=== PATIENT | female | born 1975 | race Two or more races ===

== ENCOUNTER 2017-10-30 05:30 | Day surgery (SDC) | payer OTHER ==
[2017-10-30] MEDS ORDERED: CODE1TAB37 PO (08:44)
[2017-10-30] MEDS ORDERED: DOXYCYCLINE HY100 MG PO (08:44)
== END 2017-10-30 12:55 | disposition home or self-care (01) ==
LOC: CIR.AMB 05:30
DX: N75.0 Cyst of Bartholin's gland (principal)

== ENCOUNTER 2022-11-07 05:10 | Day surgery (SDC) | payer OTHER ==
[~2022-11-07] VITALS: Ht 157.5 cm; Wt 57.6 kg
[~2022-11-07 05:10] MED LIST: CODE1TAB37 PO; DOXYCYCLINE HY100 MG PO
[2022-11-07] MEDS ORDERED: MORGIDOX100 MG PO (10:05)
[2022-11-07] MEDS ORDERED: NAPR500T14 PO (10:05)
== END 2022-11-07 14:50 | disposition home or self-care (01) ==
LOC: CIR.AMB 05:10
PROVIDERS: ATTEND Obstetrics & Gynecology
DX: Z53.09 Procedure and treatment not carried out because of other contraindication (principal); N84.0 Polyp of corpus uteri; D25.0 Submucous leiomyoma of uterus; N92.0 Excessive and frequent menstruation with regular cycle; Z20.822 Contact with and (suspected) exposure to COVID-19; N92.5 Other specified irregular menstruation; R10.2 Pelvic and perineal pain; I10 Essential (primary) hypertension

== ENCOUNTER 2022-12-27 08:55 | Inpatient (IN) | payer OTHER ==
[~2022-12-27] VITALS: Ht 160 cm; Wt 56.7 kg
[~2022-12-27 08:55] MED LIST changes: +MORGIDOX100 MG PO; +NAPR500T14 PO
[2023-01-02] MEDS ORDERED: NAPROXEN500 MG (08:07)
[2023-01-03] MEDS ORDERED: Tylenol #3 PO (09:36)
[2023-01-03] MEDS ORDERED: NAPR500T14 PO (09:37)
== END 2023-01-03 10:10 | disposition home or self-care (01) | DRG 743 ==
LOC: OB/GYN 01-02 05:57 → O/R 01-02 05:57 → OB/GYN 01-02 09:15
PROVIDERS: ADMIT Obstetrics & Gynecology; ATTEND Obstetrics & Gynecology
PROC: 0UT20ZZ Resection of Bilateral Ovaries, Open Approach (ICD-10-PCS; 2023-01-02)
PROC: 0UT70ZZ Resection of Bilateral Fallopian Tubes, Open Approach (ICD-10-PCS; 2023-01-02)
PROC: 0JQC0ZZ Repair Pelvic Region Subcutaneous Tissue and Fascia, Open Approach (ICD-10-PCS; 2023-01-02)
PROC: 0USG0ZZ Reposition Vagina, Open Approach (ICD-10-PCS; 2023-01-02)
PROC: 0TJB8ZZ Inspection of Bladder, Via Natural or Artificial Opening Endoscopic (ICD-10-PCS; 2023-01-02)
PROC: 0UT97ZZ Resection of Uterus, Via Natural or Artificial Opening (ICD-10-PCS; principal; 2023-01-02 11:30)
DX: D25.2 Subserosal leiomyoma of uterus (principal); N84.0 Polyp of corpus uteri; N81.11 Cystocele, midline; Z20.822 Contact with and (suspected) exposure to COVID-19